=== PATIENT | female | born 1965 | race Caucasian/White ===

== ENCOUNTER → 2024-01-25 | Outpatient (CLI) | payer SELFPAY, OTHER ==
--- NOTE | 2024-01-25 14:31 | MRI_ITS ---
STUDY: MRI LEFT KNEE REASON FOR EXAM: Female, 58 years old. Pain. TECHNIQUE: Standardized fat and water weighted pulse sequences were obtained in all 3 orthogonal planes. COMPARISON: X-ray January 08, 2024. FINDINGS: There is partial tear of the posterior horn medial meniscus adjacent to the meniscal root. There is extrusion of the body of the meniscus. There is diffuse, greater than 50% thickness articular cartilage loss of the medial femorotibial compartment. There is severe osteoarthritic spur formation of the medial knee compartment. Normal medial collateral ligamentous complex (MCL). Normal distal semimembranosus, gracilis and semitendinosus tendons. Normal lateral meniscus. Normal hyaline cartilage of the lateral femorotibial compartment. There is moderate osteoarthritic spur formation of the lateral knee compartment. There are cysts of the lateral femoral condyle. Normal proximal tibiofibular articulation. Normal lateral collateral (fibular) ligament. Normal popliteus tendon. Normal biceps femoris tendon. Normal anterior cruciate ligament (ACL). Normal posterior cruciate ligament (PCL). There is arthrosis of the patellofemoral articulation. There is diffuse, greater than 50% thickness articular cartilage loss of the patellofemoral compartment. There is moderate spurring. Normal medial and lateral patellar retinaculum. Normal quadriceps tendon. Normal patellar tendon. Normal Hoffa''s fat pad. There is a moderate volume joint effusion. There is 1.2 cm loose body in the anterior joint. The soft tissues are unremarkable. The otherwise visualized osseous structures are unremarkable. MRI/Lower Ext Joint Only (Routine) IMPRESSION: Medial meniscus tear. Degenerative change. Joint effusion with loose body. Electronically Signed: Dontae Lugo MD at 18:08 EDT ,
== END | disposition home or self-care (01) ==
LOC: MRI 14:24
PROVIDERS: Referring Provider Orthopaedic Surgery; Visit Provider Orthopaedic Surgery
DX: M17.12 Unilateral primary osteoarthritis, left knee (principal)
CPT/HCPCS: 73721